=== PATIENT | male | born 1995 | race Caucasian/White ===

== ENCOUNTER 2022-09-22 17:17 | Emergency (ER) | payer BC, SELFPAY ==
--- NOTE | 2022-09-22 17:22 | ED.URI ---
HPI - URI/Sore Throat General Chief Complaint: Upper Respiratory Infection Stated Complaint: sore throat,sinus drainage Time Seen by Provider: 09/22/22 17:30 Source: patient and RN notes reviewed Mode of arrival: ambulatory Limitations: no limitations History of Present Illness HPI Narrative: 27-year-old male presents concern for a 3 day history of sore throat, headache, cough, nasal congestion and drainage. He reports been taking phenylephrine and Tylenol with little relief. He also reports, and a separate complaint, an oral lesions reports it occasionally opens up and bleeds. Reports he has seen his dentist about this who told him that he may need to consult an oral surgeon. MD elicited complaint: cough and sore throat Related Data Allergies Allergy/AdvReac Type Severity Reaction Status Date / Time No Known Allergies Allergy Verified 09/22/22 17:41 Review of Systems Review of Systems: CONSTITUTIONAL: Reports malaise, fever. EYES: Denies visual changes, redness, or discharge. ENT: Reports rhinorrhea, congestion, sore throat. Denies sinus pain, otalgia CARDIOVASCULAR: Denies chest pain, palpitations, or edema. RESPIRATORY: Reports cough. Denies dyspnea. GASTROINTESTINAL: Denies abdominal pain, nausea, vomiting, diarrhea SKIN: Denies rash or itching. Reports normal lesion MUSCULOSKELETAL: Reports myalgia. NEUROLOGIC: Reports headache. All systems reviewed & are unremarkable except as noted in HPI and below PMFSH Comments At time of signature, agree with nursing past medical, surgical, social and family history. There is no relevant family history pertinent to the presenting complaint Exam Narrative: GENERAL: Well-appearing, well-nourished, and in no acute distress. HEAD: Normocephalic EYES: PERRLA, conjunctivae clear ENT: Nares clear, turbinates edematous and erythematous, clear discharge. Mucous membranes moist. TM pearly verduzco with dull light reflex bilaterally; no tragal tenderness. Oropharynx not erythematous. Tonsils not enlarged and without exudate, no drooling, no hoarseness, no trismus, uvula midline. Raised lesion noted on the lower inner lip mucous membrane colored, nonfluctuant NECK: Supple. No lymphadenopathy CHEST: Clear to auscultation, breath sounds equal. No wheezing, rhonchi, rales, or stridor. No respiratory distress, speaks in full sentences. HEART: Regular rate and rhythm. No murmur heard. SKIN: Warm, dry, no rash. NEURO: Alert and oriented x3. PSYCH: Normal mood and affect Course Course Emergency Course: Patient is aware of diagnosis, understands and agrees to treatment plan. Anticipatory guidance given. Patient agrees to follow-up as directed and is aware of reasons to seek care at the emergency department. Portions of this record may have been created with voice recognition software Level of Care: Express Care Visit Vital Signs Vital signs: Reviewed. MDM - URI/Sore Throat MDM Narrative Medical decision making narrative: Differential diagnosis considered: Rodriges virus, strep pharyngitis, allergic rhinitis, upper respiratory tract infection, sinusitis, rhinosinusitis, nasopharyngitis. viral pharyngitis, otitis media, otitis externa, pneumonia, bronchitis, viral cough syndrome, viral syndrome, and influenza. Exam findings show no acute concerns or changes; patient is non-toxic appearing and is in no distress. Patient is appropriate for outpatient treatment and follow-up. Lab Data Attestation: I reviewed the patient's lab results. Critical Care Time Critical Care Time Critical Care Time: No Discharge Plan Discharge Clinical Impression: COVID Patient Disposition: Home, Self-Care Condition: Stable Instructions: How to Recover from COVID-19 at Home (ED) Additional Instructions: Please follow-up with your dentist regarding the growth in your mouth for further evaluation Your rapid COVID test is positive. ? Stay home when you are sick, except to get medical care. ? Stay
[2022-09-22 17:26] VITALS: BP 121/88; PULSE 95; RESP 16; TEMP 36.6; O2SAT 98
== END 2022-09-22 17:49 | disposition home or self-care (01) ==
PROVIDERS: Emergency Provider Nurse Practitioner
DX: U07.1 COVID-19 (principal)
CPT/HCPCS: 87426; 87804; 99213; C9803; G0463

== ENCOUNTER 2025-01-22 13:40 | Emergency (ER) | payer BC, SELFPAY ==
--- NOTE | 2025-01-22 13:49 | ED_ITS ---
HPI - URI/Sore Throat General Chief Complaint: Upper Respiratory Infection Stated Complaint: Chest Congestion,Sore Throat Time Seen by Provider: 01/22/25 14:20 Source: patient Mode of arrival: ambulatory Limitations: no limitations History of Present Illness HPI Narrative: Brian is a 30-year-old male patient presenting to the clinic today with complaints of chest congestion, sore throat, fever, body aches, and cough. He reports symptoms have been going on for 3 days. Temperature was as high as 103? F. Denies any shortness of breath or chest pain. Did at home COVID and flu testing was negative yesterday MD elicited complaint: sore throat and nasal congestion Related Data Allergies Allergy/AdvReac Type Severity Reaction Status Date / Time No Known Allergies Allergy Verified 01/22/25 14:14 Review of Systems Review of Systems: Pertinent positives per HPI. Patient denies any fever, chills, rash, headache, visual changes, dizziness, cough, shortness of breath, chest pain, palpitations, nausea, vomiting, diarrhea, constipation, abdominal pain, or any urinary issues. PMFSH Comments At the time of my signature, I reviewed and agree with the nursing past medical, surgical, social, and family history. There is no relevant family history pertinent to the patient complaint. Exam Narrative: General: Well-developed, well nourished, in no apparent distress Head: Normocephalic, atraumatic Eyes: Pupils equally round and reactive to light bilaterally, EOM intact, sclera and conjunctive clear, no discharge, lids normal Ears: TMs intact and clear, ear canals clear, no drainage, grossly hearing normal. Nose: Nares patent, clear nasal discharge, no inflammation, no sinus tenderness. Mouth: Oral pharynx red with bilateral tonsillar enlargement without lesions or masses, good dentition, MMM. Neck: Supple, trachea midline, enlargement of anterior cervical nodes, no thyroid masses or goiter palpable. Cardio: Regular rate and rhythm, s1 and s2 normal, no murmur appreciated. Resp: Clear to auscultation bilaterally, no rhonchi, rales, wheezing or rubs Course Course Emergency Course: Portions of this record may have been created with voice recognition software. Level of Care: Express Care Visit Vital Signs Vital signs: Vital Signs Temperature 37.1 C 01/22/25 14:15 Pulse Rate 87 01/22/25 14:15 Respiratory Rate 20 01/22/25 14:15 Blood Pressure 128/84 01/22/25 14:15 Pulse Oximetry 98 01/22/25 14:15 Oxygen Delivery Room Air 01/22/25 14:15 Temperature 37.1 C 01/22/25 14:15 Pulse Rate 87 01/22/25 14:15 Respiratory Rate 20 01/22/25 14:15 Blood Pressure 128/84 01/22/25 14:15 Pulse Oximetry 98 01/22/25 14:15 Oxygen Delivery Room Air 01/22/25 14:15 Vital signs reviewed MDM - URI/Sore Throat MDM Narrative Medical decision making narrative: At the time of visit patient is resting comfortably on the exam table. Patient appears to be nontoxic. Labs: Strep, COVID, and influenza testing was performed. Strep test was positive. COVID and influenza testing was negative. Plan: Patient has strep throat. Prescription for amoxicillin was sent to the pharmacy. Supportive measures were discussed with the patient and they voiced understanding discharge instructions and agrees to treatment plan. Return precautions reviewed Differential Diagnosis Differential diagnosis: Likely upper respiratory infection, otitis media, sinusitis, viral infection, bronchitis, influenza, pharyngitis and other (COVID) Lab Data Labs: Lab Results 01/22/25 Range/Units 14:41 POC Influenza A Ag Negative (Negative) POC Influenza B Ag Negative (Negative) POC SARS CoV-2 Ag Negative (Negative) POC Grp A Strep Screen Positive (Negative) Discharge Plan Discharge Clinical Impression: Acute streptococcal pharyngitis, Upper respiratory infection Patient Disposition: Home Condition: Stable Instructions: Antibiotic Form, Strep Throat (ED), Upper Respiratory Infection (ED) Additional Instructions: Strep test is positive in the clinic today. COVID and influenza testing was negative. Take prescription medications only as prescribed-amoxicillin Change your toothbrush in 24 hours after initiation of the antibiotics Increase fluids and stay well hydrated Tylenol/motrin for pain/fever Flonase and OTC antihistamines as directed Vicks vapor rub to open sinuses Sinus rinses for congestion Cepacol spray, cough drops, throat lozenges, warm tea with honey/lemon, gargle salt water to soothe throat BRAT diet for diarrhea Clear liquids x 24 hours then advance as tolerated for nausea/vomiting Go to the ED if you develop a worsening in your condition- high fever not controlled by Tylenol or Motrin, dehydration, weakness, lethargy, shortness of breath, or chest pain. Follow up with your PCP in 3-5 days if symptoms persist. Patient Language: Australian Prescriptions: New amoxicillin 875 mg tablet 875 mg PO Q12H 10 Days Qty: 20 0RF No Action pseudoephedrine HCl [12 Hour Decongestant] 120 mg tablet extended release 120 mg PO Q12H PRN (Reason: nasal congestion) Qty: 12 0RF dextromethorphan-guaifenesin [Mucinex DM] 60-1,200 mg tablet extended release 12 hr 1 tablet PO Q12H Qty: 12 0RF Follow-up/Referrals: UNKNOWN,DOCTOR [Primary Care Provider] - Stand Alone Forms: Work/School Release IP Time of Disposition: 14:34 Quality NIHSS Nursing Documentation ED NIHSS nursing documentation: reviewed/agree
[2025-01-22 14:15] VITALS: BP 128/84; PULSE 87; RESP 20; TEMP 37.1; O2SAT 98
[2025-01-22 14:44] LABS: EDCOVIDSCREEN Negative (Negative); EDINFLUASCREEN Negative (Negative); EDINFLUBSCREEN Negative (Negative); EDSTREPNEGPOS1 Positive (Negative)
== END 2025-01-22 14:43 | disposition home or self-care (01) ==
PROVIDERS: Emergency Provider Nurse Practitioner Family
DX: J02.0 Streptococcal pharyngitis (principal); Z20.822 Contact with and (suspected) exposure to COVID-19
CPT/HCPCS: 87426; 87804; 87880; 99213; G0463

== ENCOUNTER 2025-02-25 17:25 | Emergency (ER) | payer BC, SELFPAY ==
[2025-02-25 17:33] VITALS: BP 125/87; PULSE 100; RESP 20; TEMP 36.8; O2SAT 97
--- NOTE | 2025-02-25 17:40 | ED_ITS ---
HPI - URI/Sore Throat General Chief Complaint: Upper Respiratory Infection Stated Complaint: COUGH/SORE THROAT/DRAINAGE Time Seen by Provider: 02/25/25 17:41 Source: patient Mode of arrival: ambulatory Limitations: no limitations History of Present Illness HPI Narrative: 30-year-old male presents with complaint of cough for 3 weeks. Also reports postnasal drainage, scratchy throat. Was seen 3 weeks ago for sore throat and given amoxicillin for strep throat. Patient states that throat is feeling better. No shortness of breath or chest pain. Afebrile. Taking [id number] Mucinex DM to treat symptoms. All systems reviewed and negative except as noted above. Related Data Allergies Allergy/AdvReac Type Severity Reaction Status Date / Time No Known Allergies Allergy Verified 02/25/25 17:39 Review of Systems Review of Systems: CONSTITUTIONAL: Denies fever, chills, or sweats. EYES: Denies visual changes, redness, or discharge. ENT: Reports rhinorrhea, postnasal drainage, scratchy throat. Denies congestion or otalgia. CARDIOVASCULAR: Denies chest pain, palpitations, or edema. RESPIRATORY: Reports cough. Denies dyspnea. GASTROINTESTINAL: Denies abdominal pain, nausea, vomiting, or diarrhea. GENITOURINARY: Denies dysuria or hematuria. SKIN: Denies rash or itching. MUSCULOSKELETAL: Denies back pain, joint pain, or myalgia. NEUROLOGIC: Denies headache, numbness, or weakness. PSYCHIATRIC: Denies anxiety or depression. All other systems reviewed are negative, except as documented in HPI. PMFSH Comments At time of signature, agree with nursing past medical, surgical, social and family history. There is no relevant family history pertinent to the presenting complaint. Exam Narrative: GENERAL: This is a well-nourished, well-developed patient, in no apparent distress. HEAD: normocephalic, atraumatic. EYES: PERRL. Sclera clear/white. Vision is grossly intact. EARS: External ears normal, auditory canals clear and without drainage, TMs normal without perforation. Hearing grossly intact. NOSE: External nose normal with clear nasal drainage THROAT: Mucous membranes moist, postnasal drainage without erythema, swelling or exudates NECK: Neck supple, non-tender without lymphadenopathy, masses or thyromegaly. CARDIOVASCULAR: Regular rate and rhythm without murmurs, gallops, or rubs. RESPIRATORY: Clear to auscultation. Breath sounds equal bilaterally. No wheezes, rales, or rhonchi. SKIN: warm, Dry, intact with no suspicious lesions or rash, good texture and turgor. NEURO: awake, alert, and oriented to person, place and time. There were no obvious focal neurologic abnormalities. EXTREMITIES: No joint tenderness, effusion, or edema noted. Course Course Level of Care: Express Care Visit Vital Signs Vital signs: Vital Signs Temperature 36.8 C 02/25/25 17:33 Pulse Rate 100 02/25/25 17:33 Respiratory Rate 20 02/25/25 17:33 Blood Pressure 125/87 02/25/25 17:33 Pulse Oximetry 97 02/25/25 17:33 Oxygen Delivery Room Air 02/25/25 17:33 Temperature 36.8 C 02/25/25 17:33 Pulse Rate 100 02/25/25 17:33 Respiratory Rate 20 02/25/25 17:33 Blood Pressure 125/87 02/25/25 17:33 Pulse Oximetry 97 02/25/25 17:33 Oxygen Delivery Room Air 02/25/25 17:33 Reviewed MDM - URI/Sore Throat MDM Narrative Medical decision making narrative: Patient well-appearing, nontoxic. Lungs clear to auscultation. No respiratory distress. Will treat patient with antibiotic due to duration symptoms. Recommend a daily antihistamine such as Claritin or Zyrtec. Patient agrees with plan of care. Differential Diagnosis Differential diagnosis: Likely upper respiratory infection, sinusitis, viral infection and bronchitis Discharge Plan Discharge Clinical Impression: Acute bronchitis, Acute rhinosinusitis Patient Disposition: Home Condition: Stable Instructions: Antibiotic Form, Acute Bronchitis (ED) Additional Instructions: Take medications as prescribed. Take an hhnn-cyz-icrczsy antihistamine daily such as Claritin or Zyrtec. Continue taking Mucinex DM as directed on packaging. Drink at least 64 oz of water a day. See your doctor if symptoms are not improving. Patient Language: Ukrainian Prescriptions: New doxycycline hyclate 100 mg capsule 100 mg PO BID 7 Days Qty: 14 0RF methylprednisolone [Medrol (Jac)] 4 mg tablets,dose pack See Rx Instructions PO .COMPLEX Qty: 21 0RF Rx Instructions: orally per package directions Follow-up/Referrals: PHYSICIAN,TAR AND AMMONIA PUMP OPERATOR [Primary Care Provider] - Time of Disposition: 17:46
== END 2025-02-25 17:47 | disposition home or self-care (01) ==
PROVIDERS: Emergency Provider Nurse Practitioner Family
DX: J20.9 Acute bronchitis, unspecified (principal); J01.90 Acute sinusitis, unspecified
CPT/HCPCS: 99213; G0463

== ENCOUNTER 2025-03-27 11:31 | Emergency (ER) | payer BC, SELFPAY ==
--- NOTE | ~2025-03-27 | XR_ITS ---
EXAMINATION: XR chest 2V DATE: 03/27/2025 12:22 INDICATION: Several weeks of cough. TECHNIQUE: PA and lateral views of the chest were obtained. COMPARISON: None FINDINGS: The lungs are clear with no focal airspace opacities, pulmonary edema, pleural effusion or pneumothor ax. The cardiomediastinal silhouette is normal. Mild upper thoracic levocurvature and mild mid thorac ic dextrocurvature. IMPRESSION: 1. No acute cardiopulmonary disease. Reviewed, dictated and finalized at location A.
--- NOTE | 2025-03-27 11:49 | ED.URI ---
HPI - URI/Sore Throat General Chief Complaint: Upper Respiratory Infection Stated Complaint: Cough Time Seen by Provider: 03/27/25 11:49 Source: patient, RN notes reviewed and old records reviewed Mode of arrival: ambulatory Limitations: no limitations History of Present Illness HPI Narrative: 30-year-old male presents to the [facility] with complaints of a cough. Patient reports cough for at least 7 weeks. Had been evaluated on February 25 1 month ago, was prescribe doxycycline and a Medrol Dosepak. At that time had stated cough x3 weeks. Denies any chest pain. States he did have 102 fever last night. Related Data Home Medications ?Medication ?Instructions ?Recorded ?Confirmed ?Last Taken ?Type No Home Medications 03/27/25 03/27/25 Unknown History Allergies Allergy/AdvReac Type Severity Reaction Status Date / Time No Known Allergies Allergy Verified 03/27/25 11:49 Review of Systems Review of Systems: All systems reviewed & are unremarkable except as noted in HPI and below Constitutional: Constitutional: Reports no additional constitutional complaints ENT: Reports system reviewed and no additional complaints, except as documented Cardiovascular: Cardiovascular: Reports no additional cardiovascular complaints, Denies chest pain and Denies dyspnea Respiratory: Respiratory: Reports as per HPI, Denies chest congestion, Reports cough and Denies dyspnea Musculoskeletal: Musculoskeletal: Reports no additional musculoskeletal complaints Integumentary/Breasts: Skin/Breast: Reports system reviewed and no additional complaints, except as docu PMFSH Comments At the time of my signature, I reviewed and agree with the nursing past medical, surgical, social, and family history. There is no relevant family history pertinent to the patient complaint. Exam Const: General: cooperative, healthy appearing, comfortable, no acute distress, well developed, alert and well nourished Nutritional Appearance: well nourished Orientation/consciousness: patient oriented x3 Limitations: no limitations HENMT: Head: normal to inspection Ears: hearing grossly normal bilaterally, external ears normal, TM's normal bilaterally, EAC's normal, mastoids normal and no periauricular adenopathy Face/Nose/Sinus: Normal external nose present, Normal nares present and No nasal discharge present Face and sinus: normal facial exam and face symmetric Mouth: Yes Normal oral and palatal mucosa present, Yes lip normal, Yes tongue normal and Yes moist mucous membranes Throat: posterior oropharynx normal, uvula midline and no uvular edema Eyes: General: appearance normal, both eyes and all related structures Alignment and Position: alignment normal Neck: Neck: normal visual inspection, full ROM, no lymphadenopathy and no meningeal signs Chest: Chest palpation & inspection: normal inspection of the chest Resp: Effort & Inspection: normal respiratory effort and able to speak in complete sentences Auscultation: clear to auscultation bilaterally, no crackles, no rales, no rhonchi and no wheezes Cardio: Rate: regular rate Skin: General skin exam: normal color and no rashes or lesions noted Neuro: General: patient oriented x3, gait normal, moves all extremities and no meningeal signs Cognition (Neuro): normal cognition Speech: normal speech Gait exam (Neuro): Normal gait present Extrem: General: normal to inspection, full ROM, capillary refill normal and normal gait Psych: Appearance: grossly normal and well kempt Mental Status: mental status grossly normal Speech and movement: Normal speech and movement present and Clear speech present Affect: normal affect Attitude: cooperative Course Course Level of Care: Express Care Visit Vital Signs Vital signs: Vital Signs Temperature 98.2 F 03/27/25 11:54 Pulse Rate 92 03/27/25 11:54 Respiratory Rate 16 03/27/25 11:54 Blood Pressure 128/89 03/27/25 11:54 Pulse Oximetry 99 03/27/25 11:54 Oxygen Delivery Room Air 03/27/25 11:54 Temperature 98.2 F 03/27/25 11:54 Pulse Rate 92 03/27/25 11:54 Respiratory Rate 16 03/27/25 11:54 Blood Pressure 128/89 03/27/25 11:54 Pulse Oximetry 99 03/27/25 11:54 Oxygen Delivery Room Air 03/27/25 11:54 Reviewed MDM - URI/Sore Throat MDM Narrative Medical decision making narrative: Patient sitting in exam room. Patient is nontoxic, vitals are stable. Patient presents approximately 7 weeks a cough. Has been waxing and weaning. Did take doxy and steroids. Did take 1 Zyrtec last night No acute findings noted on exam. X-ray was negative for acute findings. Handouts for primary care providers given Patient appropriate for outpatient treatment with [id number] products suggestions. Discharge instructions reviewed with patient, as well as provided in writing per nursing staff. The instructions also include specific and strict return/GO TO THE ER as well as f/u information. All questions have been answered, and the patient deny any further questions with discharge and discharge plan. Some parts of this dictation were generated by voice recognition software and may contain typographical and/or grammatical inaccuracies. Differential Diagnosis Differential diagnosis: Likely upper respiratory infection, viral infection and bronchitis Imaging Data Radiologist's impression: EXAMINATION: XR chest 2V DATE: 03/27/2025 12:22 INDICATION: Several weeks of cough. TECHNIQUE: PA and lateral views of the chest were obtained. COMPARISON: None FINDINGS: The lungs are clear with no focal airspace opacities, pulmonary edema, pleural effusion or pneumothorax. The cardiomediastinal silhouette is normal. Mild upper thoracic levocurvature and mild mid thoracic dextrocurvature. IMPRESSION: 1. No acute cardiopulmonary disease. Critical Care Time Critical Care Time Critical Care Time: No Discharge Plan Discharge Clinical Impression: Cough Qualifiers: Cough type: subacute Qualified Code(s): R05.2 - Subacute cough Patient Disposition: Home Condition: Stable Instructions: Chronic Cough (ED) Additional Instructions: It is very important to treat your symptoms. Drink plenty of water, Gatorade, Pedialyte, ice pops or Jell-O. -Alternate Tylenol and Motrin per package directions for fever or pain. You can alternate every 4 hours -Antihistamine medication such as Zyrtec/Claritin/Mary Carmen during the day can help improve symptoms. These medications are meant to be taken on a daily basis -Use Flonase twice a day for 5 days then daily to help reduce the inflammation and dry up your sinuses. -You can also use Mucinex. Be sure to drink plenty of water with this medication at least 8 ounces with every dose and it is important to drink 8 to 10 glasses of water per day. Water is a natural decongestant -Frequent hand washing or hand transmission calibration engineer is one of the best ways to prevent spread of infection. -Using a vaporizer or humidifier at night will also help thin secretions and help with coughing up phlegm. -Follow up with primary care provider in 7-10 days if condition is not improving If you are having a hard time finding a physician please call our [facility] group liaison at [phone]. - For new or worsening symptoms go directly to the nearest ER Patient Language: Kiswahili Prescriptions: No Action No Home Medications Follow-up/Referrals: PHYSICIAN,RUG SETTER AXMINSTER [Primary Care Provider] - Stand Alone Forms: Work/School Release IP Time of Disposition: 12:39
[2025-03-27 11:54] VITALS: BP 128/89; PULSE 92; RESP 16; TEMP 36.8; O2SAT 99
== END 2025-03-27 12:49 | disposition home or self-care (01) ==
PROVIDERS: Emergency Provider Nurse Practitioner
DX: R05.9 Cough, unspecified (principal)
CPT/HCPCS: 71046; 99213; G0463